=== PATIENT | female | born 1980 ===

== ENCOUNTER 2017-10-30 16:09 | Emergency (ER) | payer MEDICAID ==
[2017-10-30 16:18] VITALS: BP 121/70; PULSE 87; RESP 16; TEMP 99.1; O2SAT 99
--- NOTE | 2017-10-30 16:34 | ED PDOC ---
HPI: Abdomen Time Seen by Provider: 10/30/17 16:32 Chief Complaint (Nursing): Abdominal Pain Chief Complaint (Provider): abd pain, vomiting History Per: Patient Past Medical History Vital Signs: Last Vital Signs Temp 99.1 F 10/30/17 16:16 Pulse 87 10/30/17 16:16 Resp 16 10/30/17 16:16 BP 121/70 10/30/17 16:16 Pulse Ox 99 10/30/17 16:16 - Family History Family History: States: Unknown Family Hx - Home Medications Home Medications: Ambulatory Orders Medication Instructions Recorded traMADol [Ultram] 50 mg PO Q6 PRN #12 tab 01/06/16 - Allergies Allergies/Adverse Reactions: Allergies Allergy/AdvReac Type Severity Reaction Status Date / Time No Known Allergies Allergy Verified 01/06/16 00:28 - ECG O2 Sat by Pulse Oximetry: 99 Disposition - Disposition
== END 2017-10-30 16:32 | disposition left against medical advice (07) ==
LOC: H.ER 16:09
DX: Z02.89 Encounter for other administrative examinations (principal)